=== PATIENT | female | born 1950 | race Caucasian/White ===

== ENCOUNTER 2020-08-08 17:10 | Emergency (ER) | payer OTHER ==
[~2020-08-08] VITALS: Ht 162.6 cm; Wt 90.7 kg
[~2020-08-08 17:10] MED LIST: DULO30; LORA1 PO; OXYACE5T PO; VENL150ER PO; VENL75ER
== END 2020-08-08 18:36 | disposition home or self-care (01) ==
LOC: ER 17:10
DX: S01.81XA Laceration without foreign body of other part of head, initial encounter (principal); Z79.899 Other long term (current) drug therapy; Z23 Encounter for immunization; W17.89XA Other fall from one level to another, initial encounter
CPT/HCPCS: 12011; 90471; 90714; 93005; 93010; 99283-25

== ENCOUNTER 2022-11-28 12:20 | Emergency (ER) | payer OTHER ==
[~2022-11-28] VITALS: Ht 162.6 cm; Wt 80.3 kg
[2022-11-28 12:29] VITALS: BP 123/90
[2022-11-28] MEDS ORDERED: ABILIFY MYCITE2 M2 (12:32)
== END 2022-11-28 15:45 | disposition home or self-care (01) ==
LOC: ER 12:20
DX: K62.3 Rectal prolapse (principal)
CPT/HCPCS: 99283

== ENCOUNTER 2022-12-04 17:38 | Emergency (ER) | payer OTHER ==
[~2022-12-04] VITALS: Ht 162.6 cm; Wt 78.0 kg
[~2022-12-04 17:38] MED LIST changes: +ABILIFY MYCITE2 M2
[2022-12-04 19:30] VITALS: BP 132/85
[2022-12-04] MEDS ORDERED: BISA5EC PO (21:30)
[2022-12-04] MEDS ORDERED: MIRALAX17 GM PO (21:30)
== END 2022-12-04 22:08 | disposition home or self-care (01) ==
LOC: ER 17:38
DX: K59.00 Constipation, unspecified (principal); K62.2 Anal prolapse
CPT/HCPCS: 96361; 96374; 99283-25; A9270; J3010; J7030

== ENCOUNTER → 2024-02-23 | Outpatient (CLI) | payer OTHER ==
[~2024-02-23] MED LIST changes: +BISA5EC PO; +MIRALAX17 GM PO
[2024-02-25 19:20] LABS: APTIMA MEDIA TYPE Unisex Swab; C. TRACHOMATIS BY TMA Negative (Negative); N. GONORRHOEAE BY TMA Negative (Negative); SPECIMEN SOURCE Cervical
== END | disposition home or self-care (01) ==
LOC: LAB SHORT 10:34 → LAB 10:34
PROVIDERS: Obstetrics & Gynecology
DX: Z11.3 Encounter for screening for infections with a predominantly sexual mode of transmission (principal)
CPT/HCPCS: 87491; 87591

== ENCOUNTER → 2024-03-03 | Outpatient (CLI) | payer OTHER | END | disposition home or self-care (01) | LOC: LAB SHORT 08:42 → LAB 08:42 | DX: N95.0 Postmenopausal bleeding (principal); N93.0 Postcoital and contact bleeding | CPT/HCPCS: 88305 ==

== ENCOUNTER → 2024-04-16 | Outpatient (CLI) | payer OTHER | LOC: LAB 07:31 → LAB SHORT 07:31 | DX: N95.0 Postmenopausal bleeding (principal); N93.0 Postcoital and contact bleeding | CPT/HCPCS: 88305 ==

== ENCOUNTER 2024-06-23 06:13 | Day surgery (SDC) | payer OTHER ==
[~2024-06-23] VITALS: Ht 162.6 cm; Wt 72.1 kg
[2024-06-23] VITALS (17 sets, daily range): BP systolic 101–147; BP diastolic 57–88
[~2024-06-23 06:13] MED LIST changes: -ABILIFY MYCITE2 M2; +ABILIFY MYCITE5 M2 PO; +ALBU90OI INH; +B-12500 MC2 PO; +Estrace Vagin42.5 GM VAG; +FLUTICASONE-SAL12 G2 INH; +IBUP800 PO; +TIOT18 INH; +VENL37.5 PO; +VENL75ER PO
[2024-06-23] MEDS ORDERED: CeFAZolin Sodium 2,000 MG in NS 100 ML IV SCH (06:30)
[2024-06-23] MEDS ORDERED: Lactated Ringer's 1,000 ML IV SCH (06:30)
[2024-06-23] MEDS ORDERED: CeFAZolin Sodium 2,000 MG VIAL ONE (06:42)
--- NOTE | 2024-06-23 07:03 | NUR ---
History, Chart, Medications and Allergies reviewed before start of procedure. Pre-Op teaching done. Pt verbalizes understanding. Patient confirms NPO status and agrees with scheduled surgery. PT BELONGINGS BAG PLACED UNDER BED.
[2024-06-23] MEDS ORDERED: Magnesium Sulf 2 GM/Water 50ML 50 ML IV SCH (07:15)
[2024-06-23] MEDS ORDERED: Acetaminophen 500 MG Tab PO SCH ×2 (07:15→16:00)
[2024-06-23] MEDS ORDERED: Magnesium Sulfate 500 MG / ML 2ML Vial IV SCH (07:25)
[2024-06-23] MEDS ORDERED: Bupivacaine 0.5% HCl 5 MG/ML 30MLVIAL ONE (09:07)
[2024-06-23] MEDS ORDERED: Lidocaine HCl 2% 20 ML MDV ONE (09:38)
[2024-06-23] MEDS ORDERED: Rocuronium Bromide 10 MG/ML 5ML Injection IV ONE ×2 (09:38→10:49)
[2024-06-23] MEDS ORDERED: Ondansetron HCl 2 MG / ML 2ML Vial ONE (09:38)
[2024-06-23] MEDS ORDERED: propofoL 20 ML IV ONE (09:39)
[2024-06-23] MEDS ORDERED: HYDROmorphone HCl/Pf 1MG SYR ONE ×2 (09:41→11:04)
[2024-06-23] MEDS ORDERED: Midazolam HCl 1MG / ML 2ML Vial ONE (10:34)
[2024-06-23] MEDS ORDERED: FentaNYL Citrate 50 MCG/ML 5 ML Injection ONE (10:35)
[2024-06-23] MEDS ORDERED: HydrALAZINE HCl 20 MG / ML 1ML Vial ONE (10:57)
[2024-06-23] MEDS ORDERED: Sugammadex Sodium 200 MG/2ML SDV (100 MG/ML) ONE (12:01)
[2024-06-23] MEDS ORDERED: Simethicone 80 MG Chew PO PRN (12:25)
[2024-06-23] MEDS ORDERED: FentaNYL Citrate 50 MCG/ML 2 ML Injection IV PRN (12:25)
[2024-06-23] MEDS ORDERED: OxyCODONE HCL 5 MG TAB PO PRN ×2 (12:25)
[2024-06-23] MEDS ORDERED: Albuterol 2.5 MG/3 ML VIAL ONE (12:25)
[2024-06-23] MEDS ORDERED: FLU VACC TS2024-25(6MOS UP)/PF 45 MCG/0.5 ML SYRINGE IM ONE (12:25)
--- NOTE | 2024-06-23 13:39 | NUR ---
ARRIVAL PT ARRIVED TO UNIT FROM PACU. PT ORIENTED X4 BUT TIRED. ON 4L NASAL CANULA TO MAINTAIN SATS 92% OR HIGHER. HISTORY OF COPD. LAP SITES X4 WITH BRUISING. OTHERWISE CDI WITH WOUND GLUE. SCANT DRAINAGE ON AKTIE PAD. JOSE LIGHT PROVIDED AND PATIENT ORIENTED ON USE. WATER PROVIDED. PT DENIES FURTHER NEEDS AT THIS ITME.
[2024-06-23 13:55] LABS: Hematocrit 42.1 % (33.0-51.0); Mean Corpuscular HGB Conc 33.3 g/dL (31.5-36.5); Mean Corpuscular Volume 90 fL (80-100); Mean Platelet Volume 8.8 fL (9.1-12.4); Platelet Count 350 K/mm3 (150-400); RDW Coefficient Variation 13.4 % (11.7-14.2); RDW Standard Deviation 43.9 fL (35.1-46.3); Red Blood Cell Count 4.67 M/mm3 (3.80-5.20); White Blood Cell Count 15.45 K/mm3 (4.00-11.30)
--- NOTE | 2024-06-23 16:46 | NUR ---
SHIFT SUMMARY PT AWAKE AND ALERT TOLERATING DIET. PT HAS YET TO AMBULATE. PT APPEARS SHORT OF BREATH WITH PROLONGED CONVERSATION. ON 3L NASAL CANULA AT THIS TIME, CONTINUING TO TITRATE DOWN TO ROOM AIR PATIENT TOLERATES. MINIMAL DRAINAGE ON KATIE PAD STILL. DENIES PAIN.
[2024-06-23 19:29] LABS: Hemoglobin 12.7 g/dL (11.5-16.0); Mean Corpuscular HGB Conc 33.4 g/dL (31.5-36.5); Mean Corpuscular Volume 90 fL (80-100); Platelet Count 338 K/mm3 (150-400); RDW Coefficient Variation 13.5 % (11.7-14.2); RDW Standard Deviation 44.1 fL (35.1-46.3); Red Blood Cell Count 4.24 M/mm3 (3.80-5.20); White Blood Cell Count 16.05 K/mm3 (4.00-11.30)
[2024-06-24 04:28] VITALS: BP 126/74
[2024-06-24 07:06] VITALS: BP 123/75
[2024-06-24 09:16] LABS: Hematocrit 37.7 % (33.0-51.0); Hemoglobin 12.3 g/dL (11.5-16.0); Mean Corpuscular HGB 29.6 pg (26.0-34.0); Mean Corpuscular HGB Conc 32.6 g/dL (31.5-36.5); Mean Corpuscular Volume 91 fL (80-100); Platelet Count 322 K/mm3 (150-400); RDW Coefficient Variation 13.7 % (11.7-14.2); RDW Standard Deviation 45.2 fL (35.1-46.3); Red Blood Cell Count 4.16 M/mm3 (3.80-5.20); White Blood Cell Count 7.85 K/mm3 (4.00-11.30)
[2024-06-24 14:56] VITALS: BP 141/81
[2024-06-24] MEDS ORDERED: ACET500 PO (15:24)
[2024-06-24] MEDS ORDERED: OXAYDO5 M1 PO (15:25)
--- NOTE | 2024-06-24 16:00 | NUR ---
DISCHARGE PT EDUCATED ON AND RECEIVED PRINTED DISCHARGE INSTRUCTIONS AND VERBALIZED AN UNDERSTANDING. IV DC'D. HOME OXYGEN DELIVERED TO PT. PT VERBALIZED FILLING ROXICODONE RX PRIOR TO ADMISSION. PT GATHERING PERSONAL BELONGINGS AND WAITING FOR RIDE HOME.
== END 2024-06-24 16:20 | disposition home or self-care (01) ==
LOC: ORSCMMR 06:13 → ORD 07:30 → SURS 13:15 → ORSCMMR 06-24 16:20
PROVIDERS: Obstetrics & Gynecology
PROC: 0UT74ZZ Resection of Bilateral Fallopian Tubes, Percutaneous Endoscopic Approach (ICD-10-PCS; principal; 2024-06-23 07:30)
PROC: 0UT24ZZ Resection of Bilateral Ovaries, Percutaneous Endoscopic Approach (ICD-10-PCS; principal; 2024-06-23 07:30)
DX: D27.1 Benign neoplasm of left ovary (principal); N83.291 Other ovarian cyst, right side; N94.89 Other specified conditions associated with female genital organs and menstrual cycle; J44.89 Other specified chronic obstructive pulmonary disease; K21.9 Gastro-esophageal reflux disease without esophagitis; Z79.899 Other long term (current) drug therapy
CPT/HCPCS: 36415; 85027; 88108; 88305; 88331; 93005; 93010; 94761; 94762; A9270; J0360; J0690; J1171; J2250; J2405; J2704; J3010; J3475; J7120